=== PATIENT | female | born 1985 | race Two or more races ===

== ENCOUNTER → 2025-04-28 | Outpatient (CLI) | payer OTHER, SELFPAY ==
--- NOTE | 2025-04-28 | XR_ITS ---
Examination: Lumbar spine, 5 views Technique: Lumbar spine AP, lateral, coned lateral lower lumbar spine, bilateral obliques 5 views Exam date and time: April 28, 2025, 1432 hours INDICATIONS: Low back pain beginning one year ago FINDINGS: Adequate alignment lumbar vertebral bodies No lumbar fracture Mild disc narrowing posteriorly L5-S1 No spondylolisthesis IMPRESSION: Mild disc narrowing L5-S1
== END | disposition home or self-care (01) ==
PROVIDERS: Referring Provider Physician Assistant; Visit Provider Physician Assistant
DX: S39.012A Strain of muscle, fascia and tendon of lower back, initial encounter (principal); X58.XXXA Exposure to other specified factors, initial encounter; M48.07 Spinal stenosis, lumbosacral region
CPT/HCPCS: 72110

== ENCOUNTER 2025-07-13 08:59 | Outpatient (AMB) | payer BC, SELFPAY ==
--- NOTE | 2025-07-13 09:14 | AMB.GYNCLNOT ---
Vital Signs 07/13/25 09:15 Height 1.73 m Height Method Stated Weight 78.471 kg Weight Measurement Method Standing Scale BMI 26.3 BP 126/84 Blood Pressure Source Automatic Cuff Blood Pressure Location Left Upper Arm Position Sitting Respiration 18 Pulse 76 Pulse Source Monitor Temp 97.2 F Temp Source Oral Pulse Oximetry (%) 98 Oxygen Delivery Method Room Air Allergies/Home Meds Allergies & Medications Allergies No Known Allergies Allergy (Verified 07/13/25 09:17) Medication Reconciliation No Known Home Medications 07/13/25 [History Confirmed 07/13/25] Intake Visit Data Collection New Patient or Established: New Patient (never been to [facility]) Reason for Visit:: MATHEMATICIAN REFERRAL Seen by Clinical Staff ONLY (RN/MA): No Mini Lab Operator Required: No Do You Feel Safe at Home: Yes Authorities Contacted: N/A PCP or OBGYN visit in last 3 months: Yes Hx Now: No Are you currently on any form of Control: No Last menstrual period: 06/26/25 Pain Present Currently: No Pain Scale Used: Guillermo-Mckeon/Numerical Pain scale:: 0 Smoking Status Smoking Status: Never smoker Immunizations Flu Vaccine in the Last 12 Months: No Flu Vaccine Exclusion Criteria: Refused by Patient and No Exclusion Criteria [employer] Member history [employer] Member History Menstrual regularity: regular Flow: normal Monthly: Yes Age at menarche: 1 Menopausal: No Currently sexually active: Yes MATHEMATICIAN: Past Medical History Additional Operations/Hospitalizations (year & reason): left kidney transplant in 2008 total thyroidectomy 2022 Questionnaires Covid-19 Vaccine Questionnaire Has patient been vacinated for Covid-19 Have you been vacinated for Covid-19: Yes PHQ-9 PHQ-2 Over the last 2 weeks, how often have you been bothered by any of the following problems? 1. Little interest or pleasure in doing things: not at all 2. Feeling down, depressed, or hopeless: not at all Total score: 0 PHQ-9 3. Trouble falling or staying asleep, or sleeping too much: Not at all 4. Feeling tired or having little energy: Not at all 5. Poor appetite or overeating: Not at all 6. Feeling bad about yourself - or that you are a failure or have let yourself or your family down: Not at all 7. Trouble concentrating on things, such as reading the newspaper or watching television: Not at all 8. Moving or speaking so slowly that other people could have noticed? - Or the opposite - being so fidgety or restless that you have been moving around a lot more than usual: not at all 9. Thoughts that you would be better off or of hurting yourself in some way: Not at all Total score: 0 If you checked off any problems, how difficult have these problems made it for you to do your work, take care of things at home, or get along with other people?: not difficult at all Source: Developed by Drs. Fermín Prasad, Savanah Morse, Greg Concepcion and colleagues, with an educational doyle from [employer]). Depression screen completed yes Social History Living Situation History Marital Status: Lives With: Family Housing: House Tobacco History Smoking Status: Never smoker Second Hand Smoke Exposure: No Alcohol History Alcohol Intake: Never Domestic Abuse History Do You Feel Safe at Home: Yes History of Present Illness HPI Narrative 40 years with irregular heavy x 1.5 years heavy flow / uses tampons / Has had Essure for contraception in 2011 H/o Kidney donation and has only 1 kidney and also h/o thyroid cancer and surgery and is on levothyroxine referred for heavy periods /LPS done 2022/ h/o depression/ never had abnormal pap smear / Patient leaning towards a hysterectomy and for that I will need to refer as she has only one kidneyand ureter Review of Systems Review of Systems Systems Reviewed: All systems reviewed, normal except as documented Exam Narrative Physical exam: Alert and oriented x 3 no shortness of breath Pain no chest pain no palpitations Chest clear bilaterally CVS regular rate and rhythm No CVAT Abdomen nontender, normal bowel sounds No guarding no rigidity No hernias Office Procedures [facility] LOC & Office Proc's Nursing/Assessment Patient Status: Initial/New Patient OB Clinic Nursing Assessment: Medication Reconciliation, Update PMH in EMR and Vital Signs OB Clinic Coordination of Care: Complex Care and Chronic Disease 1-5, Consent,records obtained, informed consent, Education Simp Pt/Fam, Lab and Imaging orders, Results/Orders obtained and Staff clarify orders Special Needs: Heart tones New Patient Charge New Patient Point Assignment: [id number] New Patient Point 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 ([id number]) Assessment & Plan Diagnosis / Problem List (1) Menorrhagia with regular cycle: Status: Acute Plan: needs a pelvic and endovaginal US and follow up after that/ continue oral iron (2) Hypothyroidism: Status: Acute Qualifiers: Hypothyroidism type: acquired Qualified Code(s): E03.9 - Hypothyroidism, unspecified Plan: labs CBC, Thyroid profile and CMP now (3) Kidney donor: Status: Acute Plan: patient donated a kidney to her father and has only one kidney / [facility] / will refer Additional Plan patient does not wish to take oral provera or BCPills and is aiming for definitive treatment with hysterctomy/ Discussed option of uterine ablation and its success rate and failure rate and that we can do here after the labs and also pelvic US Follow Up: in Jul 2025
[2025-07-13 09:15] VITALS: BP 126/84; PULSE 76; RESP 18; TEMP 36.2; O2SAT 98; BMI 26.3
== END 2025-07-13 09:37 | disposition home or self-care (01) ==
PROVIDERS: Supervising Provider Obstetrics & Gynecology; Visit Provider Obstetrics & Gynecology
DX: N92.0 Excessive and frequent menstruation with regular cycle (principal); E89.0 Postprocedural hypothyroidism; Z79.890 Hormone replacement therapy; Z52.4 Kidney donor
CPT/HCPCS: 99204; 99214; G0463

== ENCOUNTER → 2025-07-14 | Outpatient (CLI) | payer OTHER, SELFPAY ==
--- NOTE | 2025-07-14 | XR_ITS ---
Examination: Pelvic ultrasound, transabdominal, complete Technique: Transabdominal ultrasound of the pelvis performed using grayscale imaging Date and time of exam: July 14, 2025, 1357 hours INDICATIONS: Irregular heavy vaginal bleeding beginning 1 year ago FINDINGS: Uterus 8.1 cm pedunculated uterine fundal mass 28 x 16 x 26 mm Right ovary 2.9 cm arterial flow 19 mm cyst Left ovary 2.6 cm arterial flow 16 mm cyst Endometrial stripe 18 mm IMPRESSION: Uterine fundal mass, vascular 28 x 16 x 26 mm, recommend transvaginal pelvic sonography follow-up
== END | disposition home or self-care (01) ==
PROVIDERS: Referring Provider Obstetrics & Gynecology; Visit Provider Obstetrics & Gynecology
DX: R19.09 Other intra-abdominal and pelvic swelling, mass and lump (principal); Z52.4 Kidney donor
CPT/HCPCS: 76856